=== PATIENT | male | born 1950 | race Caucasian/White ===

== ENCOUNTER 2021-06-16 15:24 | Observation (INO) | payer MEDICARE ==
[~2021-06-16] VITALS: Ht 193 cm; Wt 140.9 kg
--- NOTE | 2021-06-16 15:26 | NUR ---
PATIENT TO ROOM VIA WHEELCHAIR.
[2021-06-16 16:00] LABS: GFR > 60 ML/MIN (>=60 (CALC)); GFR FOR AFR.AMER. > 60 ML/MIN (>=60 (CALC))
--- NOTE | 2021-06-16 16:00 | NUR ---
PATIENT SETTLED INTO ROOM AFTER CT SCAN. CONNECTED TO MONITOR. VSS. AT BEDSIDE. NIHS 0. ALERT AND ORIENTED. DENIES ANY NEEDS AT THIS TIME.
[2021-06-16 16:03] LABS: HEMATOCRIT 46.4 % (39.0-50.0); HEMOGLOBIN 15.3 g/dl (14.0-18.0); IMMATURE GRANULOCYTES 0.3 % (0.0-5.0); MEAN CELL VOLUME 93.5 fL CALC (80.0-100.0); MEAN CORPUSCULAR HGB 30.8 pG CALC (26.0-32.0); NEUT# 3.68 thou/uL (1.82-7.42); RED BLOOD COUNT 4.96 mill/uL (4.70-6.10); RED CELL DISTRI WIDTH 12.6 % (11.5-15.5)
[2021-06-16 16:16] LABS: ALBUMIN 4.4 g/dL (3.2-5.0); ALKALINE PHOSPHATASE 43 u/l (38-126); ANION GAP 13 (6-22 (CALC)); BILIRUBIN, TOTAL 0.4 mg/dL (0.0-1.4); BUN 19 mg/dL (8-23); BUN/CREATININE RATIO 18 (12-20 (CALC)); CARBON DIOXIDE 27 mmol/l (22-30); CHLORIDE 103 mmol/l (95-108); CREATININE 1.1 mg/dL (0.7-1.3); ETHYL ALCOHOL 0 mg/dl (0-30); GFR > 60 ML/MIN (>=60 (CALC)); GFR FOR AFR.AMER. > 60 ML/MIN (>=60 (CALC)); LIPASE 100 u/l (23-300); POTASSIUM 4.3 mmol/l (3.5-5.1); SGOT/AST 31 u/l (19-48); SODIUM 138 mmol/l (137-146); TOTAL PROTEIN 7.3 g/dL (6.3-8.2)
[2021-06-16 16:23] LABS: ACT PARTIAL THROMBO TIME 25.7 SECONDS (20.0-32.5); INTERNATIONAL NORMALIZED RATIO 0.9 RATIO (0.7-1.3); PROTHROMBIN TIME 9.7 SECONDS (9.0-12.5)
--- NOTE | 2021-06-16 16:30 | NUR ---
Reassessment of patient completed. No distress noted
--- NOTE | 2021-06-16 17:30 | NUR ---
Reassessment of patient completed. No distress noted.
--- NOTE | 2021-06-16 18:30 | NUR ---
Reassessment of patient completed. No distress noted.
--- NOTE | 2021-06-16 18:58 | NUR ---
A/OX3 SPEECH CLEAR NO FOCAL DEFICITS GCS 15 PT HAS RECALL OF EVENTS PRIOR TO ARRIVAL FEELS HE IS FULLY BACK TO HIS NORMAL SELF
--- NOTE | 2021-06-16 19:58 | NUR ---
A/OX3 SPEECH CLEAR NO COUGH NO SOB.SR NO ST T CHANGES
--- NOTE | 2021-06-16 20:45 | NUR ---
SR NO ST T CHANGES PT IS RELAXED AND COMFORTABLE A/OX3 GCS 15 SPEECH CLEAR
[2021-06-16 21:27] LABS: URINE BILIRUBIN - DIPSTICK NEGATIVE (NEGATIVE); URINE BLOOD DIPSTICK NEGATIVE (NEGATIVE); URINE COLOR YELLOW; URINE GLUCOSE - DIPSTICK NEGATIVE (NEGATIVE); URINE KETONE NEGATIVE (NEGATIVE); URINE LEUK ESTERASE NEGATIVE (NEGATIVE); URINE PROTEIN - DIPSTICK NEGATIVE (NEG-TRACE); URINE SPECIFIC GRAVITY 1.015; URINE UROBILINOGEN - DIPSTICK 0.2 E.U./dL (0.2)
[2021-06-16 21:29] LABS: URINE NITRITE - DIPSTICK NEGATIVE (Negative)
[2021-06-16 21:35] VITALS: BP 158/82
--- NOTE | 2021-06-16 21:35 | NUR ---
PHONE REPORT TO CHRIS BHATT RN
--- NOTE | 2021-06-16 21:40 | NUR ---
PT TRANSPORTED TO [facility] 271 VIA TELE IN STABLE CONDITION
--- NOTE | 2021-06-16 22:30 | NUR ---
PATIENT ADMITTED FROM ER VIA WHEELCHAIR TO ROOM 271 WITH ER STAFF IN ATTENDANCE. PATIENT IS ABLE TO TRANSFER TO BED ON HIS OWN. ADMITTED FOR TIA AND PNEUMONIA. PATIENT IS ALERT AND ORIENTEDX3. STEADY ON HIS FEET. STATES THAT HIS BROUGHT HIM TO THE ER THIS AFTERNOON AFTER HAVE EPISODE OF WORDFINDING DIFFICULTY AT HOME. NEURO AT THIS TIME IS WNL. EQUAL HAND GRASPS, AKIRA IS WNL. NO VISUAL DISTURBANCES. TELE MONITOR IS IN PLACE WITH INITIAL READING OF SB-55. IV SITE TO RAC INTACT AND HEALTHY WITH GOOD BLOOD RETURN. PATIENT STATES THAT HE HAD BM THIS MORNING AND DENIES ANY DIFFICULTY WITH URINATION AT THIS TIME. CXR TODAY REVEALS RIGHT SIDE PNEUMONIA. PATIENT WITH DECREASED BS TO RIGHT LL. LEFT IS CLEAR. NO COUGH, NO SOB. NO PERIPHERAL EDEMA NOTED. PULSES ARE PALPABLE. PATIENT ORIENTED TO ROOM AND SURROUNDINGS. INSTRUCTED ON USE ON NURSE CALL LIGHT SYSTEM AND TV REMOTE. OFFERED SNACK OR HEALTHY CHOICE MEAL BUT PATIENT DECLINED. SAFETY PRECAUTIONS REINFORCED. CALL LIGHT IN REACH. WILL CONT TO MONITOR.
[2021-06-17] VITALS: BP 91/42
[2021-06-17 03:23] VITALS: BP 111/68
--- NOTE | 2021-06-17 03:26 | NUR ---
RESTING QUIETLY AT THIS TIME IN BED-NO COMPLAINTS. VS TAKEN AND RECORDED. STILL SB ON TELE. CALL LIGHT IN REACH. WILL CONT TO MONITOR.
[2021-06-17 07:48] VITALS: BP 129/75
--- NOTE | 2021-06-17 07:48 | NUR ---
PATIENT AMBULATE FROM THE BATHROOM BACK TO HIS BED WITH STEADY GAIT. ASSESSMENT DONE. TELE IN PLACE. PATIENT IS ALERT AND ORIENT X3. PATIENT DENIES PAIN. LUNGS SOUND CLEAR/DIMINISHED. SAFETY PRECAUTIONS REINFORCED AND CALL LIGHT IN REACH.
[2021-06-17 10:39] VITALS: BP 133/77
--- NOTE | 2021-06-17 12:05 | NUR ---
PATIENT IS RESTING IN BED WAITING FOR DOCTOR TO COME SEE HIM. NOTIFIED PATIENT MD IS HERE IN THE HOSPITAL. PATIENT VERBALIZED UNDERSTANDING. PATIENT DENIES ANY OTHER NEEDS. IN ROOM. CALL LIGHT IN REACH.
[2021-06-17] MEDS ORDERED: ASPIRIN ADULT L81 M2 PO (12:30)
[2021-06-17] MEDS ORDERED: CRESTOR10 MG PO (12:31)
[2021-06-17] MEDS ORDERED: COZAAR100 MG PO (12:31)
[2021-06-17] MEDS ORDERED: CITALOPRAM40 M1 PO (12:31)
[2021-06-17] MEDS ORDERED: LEVOTHYROXIN75 MCG PO (12:31)
[2021-06-17] MEDS ORDERED: VIBRAMYCIN100 M2 PO (12:44)
[2021-06-17 13:38] VITALS: BP 133/77
[2021-06-17 15:06] VITALS: BP 131/77
--- NOTE | 2021-06-17 16:07 | NUR ---
PATIENT IS RESTING IN BED. TELE SPECIALISTS VIA ZOOM AT BEDSIDE TO ASSESS PATIENT AND ISAURA VINCENT NURSE IN ROOM. CALL LIGHT IN REACH.
--- NOTE | 2021-06-17 17:18 | NUR ---
Discharge instructions given. Patient verbalizes understanding of same. Discharged in stable condition via Wheelchair to Home with staff. All belongings sent with pt.
--- NOTE | 2021-06-19 11:12 | NUR ---
Pneumonia post discharge follow up call completed today, 06/19/21. Pt. states he is doing well. He has had no fever, chills, or SOB since discharge. Pt. is taking prescribed medication without issue. A follow up [facility] PCP will be scheduled when pt returns to his home in [place] later this month. No questions or concerns expressed at this time. Pt. appreciates follow up call.
== END 2021-06-17 17:18 | disposition home or self-care (01) ==
LOC: ED 15:24 → ED-I 15:50 → ED 18:10 → MS2 18:11
PROVIDERS: ADMIT Internal Medicine; ATTEND Internal Medicine
DX: R47.01 Aphasia (principal); J18.9 Pneumonia, unspecified organism; I10 Essential (primary) hypertension; E03.9 Hypothyroidism, unspecified; E78.5 Hyperlipidemia, unspecified; Z85.46 Personal history of malignant neoplasm of prostate; Z90.79 Acquired absence of other genital organ(s); Z20.822 Contact with and (suspected) exposure to COVID-19
CPT/HCPCS: Q9967